=== PATIENT | male | born 1975 | race Caucasian/White ===

== ENCOUNTER 2024-01-03 06:20 | Day surgery (SDC) | payer OTHER, SELFPAY ==
[2024-01-03 09:05] VITALS: BMI 28.3
[2024-01-03 09:07] VITALS: BMI 28.3
[2024-01-03 09:20] VITALS: BP 122/91
[2024-01-03 11:41] VITALS: BP 112/82
[2024-01-03 11:45] VITALS: BP 115/86
[2024-01-03 12:00] VITALS: BP 122/84
[2024-01-03 12:10] VITALS: BP 123/93
== END 2024-01-03 12:20 | disposition home or self-care (01) ==
LOC: GI 06:20
PROVIDERS: ATTENDING PHYSICIAN Internal Medicine
DX: Z12.11 Encounter for screening for malignant neoplasm of colon (principal); K63.89 Other specified diseases of intestine
CPT/HCPCS: 45380; 88305

== ENCOUNTER 2024-01-13 18:09 | Emergency (ER) | payer OTHER, SELFPAY ==
[2024-01-13 18:12] VITALS: BP 120/88
[2024-01-13 18:48] LABS: % Basophils 0.4 % (0-2); % Immature Granulocytes 0.3 % (0-0.5); % Lymphocytes 4.1 % (20.5-51.1); % Monocytes 9.8 % (1.7-9.3); % Neutrophils 85.4 % (42.2-75.2); Absolute Lymphocytes 0.3 10^3/uL (1.2-3.4); Absolute Monocytes 0.7 10^3/uL (0.1-0.6); Hematocrit 37.1 % (39.0-52.0); Hemoglobin 13.4 g/dL (13.0-18.0); Mean Corp Hgb Conc. 36.1 g/dL (33.0-37.0); Mean Corpuscular Hgb 32.8 pg (27.0-31.0); Mean Corpuscular Volume 90.9 fL (80.0-94.0); Mean Platelet Volume 9.8 fL (7.4-10.4); Nucleated Red Blood Cells % 0 % (-); Platelet Count 175 10^3/uL (130-400); Red Blood Cell Count 4.08 10^6/uL (4.70-6.10); Red Cell Dist. Width 12.6 % (11.5-14.5)
[2024-01-13 19:02] LABS: ALT (SGPT) 40 U/L (0-50); AST (SGOT) 43 U/L (17-59); Albumin 4.2 g/dl (3.5-5.0); Alkaline Phosphatase 56 U/L (38-126); Blood Urea Nitrogen 20 mg/dl (9-20); Calcium 9.1 mg/dl (8.4-10.2); Carbon Dioxide 27 mmol/L (22-30); Chloride 100 mmol/L (98-107); Glucose 120 mg/dl (70-99); Potassium 4.3 mmol/L (3.5-5.1); Sodium 135 mmol/L (135-145); Total Bilirubin 1.1 mg/dl (0.2-1.3); Total Protein 6.8 g/dl (6.3-8.2); eGFR > 60.00
[2024-01-13 19:10] LABS: Lactic Acid 1.5 mmol/L (0.7-2.0)
[2024-01-13 21:55] VITALS: BP 127/88
--- NOTE | 2024-01-13 21:57 | ED.GENMED ---
History of Present Illness
General
Chief Complaint: Fatigue
Source: patient
Exam Limitations: none
Time Seen by Provider: 01/13/24 21:26
Nursing documentation reviewed up to this point in time: agreed with
Travel History
Have you had any contact with someone who has COVID-19?: No
Do you have any symptoms of coronavirus? Fever > 100 degrees, chills, cough, shortness of breath, sore throat, loss of taste or smell, muscle aches, or headache?: No
History of Present Illness
History of Present Illness:
Patient is a 48 old male with history of cardiomyopathy CHF heart transplant 2014 presents to the ER for evaluation. Patient for over a week has had chills fatigue nasal congestion no appetite and cough. He was seen by family doctor today given
symptomatic for possible signs infection. He denies any actual shortness of breath. He is on tacrolimus and mycophenolate.
Past History
Past History
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
ED Past Surgical History: Cardiac (Internal defibrillator implant Cardiac transplant May 2015)
Social History
Tobacco: Non-smoker
Alcohol: None
Personal:
Living: with family
Employment: Employed
Family History
Family History: Other (mom with myotonic dystrophy. father healthy)
Review of Systems
Review of Systems
Allergies reviewed?: Yes
All Other Systems: ROS reviewed and negative except as documented in HPI and ROS
Constitutional: Reports fatigue and chills
EENT: Reports other (Nasal congestion)
Respiratory: Reports cough; Denies trouble breathing
Cardiac: Reports no symptoms
ABD/GI: Reports other (Decreased appetite)
: Reports no symptoms
Musculoskeletal: Reports no symptoms
Skin: Reports no symptoms
Neurological: Reports no symptoms
Hematologic/Lymphatic: Reports no symptoms
Psychiatric: Reports no symptoms
Phy Exam
General Physical Exam
General Presentation: no apparent distress
General age: appears stated age
General Skin: warm and dry
General Habitus: normal
General Mental: alert
General Hydration: appears well hydrated
Cardiovascular Exam
Cardiovascular Exam: regular rate/rhythm, no murmur and normal peripheral pulses
Pulmonary Exam
Pulmonary Exam: lungs clear and no respiratory distress
Neurological Exam
Neurological Exam: alert and oriented x3
Musculoskeletal Exam
Musculoskeletal Exam: full ROM
Skin Exam
Skin Exam: normal color and warm/dry
Psychiatric Exam
Psychiatric Exam: normal mood/affect
Course
Orders/Labs/Results
Orders:
Orders
01/13/24 18:19
Electrocardiogram (*1) Urgent
Reason for Study: Other
Other Reason for Exam: uri with cough hx heart transplant
CXR2 [CR Chest - 2 Views ] Urgent
Comment:
Reason For Exam: cough
01/13/24 18:20
EKG- Treatment ONCE
01/13/24 18:36
Complete Blood Count/With Diff Urgent
Comprehensive Metabolic Panel Urgent
Lactic Acid Urgent
Blood Culture Urgent
VANDANA Source: Blood/Venous
Specimen Description:
Influenza A+B Rapid Molecular Urgent
VANDANA Source: Nasal Swab
Specimen Description:
Abnormal Lab Results
01/13/24
18:36
RBC 4.08 L 10^6/uL
(4.70-6.10)
Hct 37.1 L %
(39.0-52.0)
MCH 32.8 H pg
(27.0-31.0)
Absolute Lymphs (auto) 0.3 L 10^3/uL
(1.2-3.4)
Absolute Monos (auto) 0.7 H 10^3/uL
(0.1-0.6)
Neutrophils % 85.4 H %
(42.2-75.2)
Lymphocytes % 4.1 L %
(20.5-51.1)
Monocytes % 9.8 H %
(1.7-9.3)
Glucose 120 H mg/dl
(70-99)
01/13/24 18:36
01/13/24 18:36
Vital Signs
Initial and Last Documented VS:
Initial Vital Signs
Temp Pulse Resp BP Pulse Ox
100.5 F H 104 16 120/88 97
01/13/24 18:12 01/13/24 18:12 01/13/24 18:12 01/13/24 18:12 01/13/24 18:12
Last Documented Vital Signs
Temp Pulse Resp BP Pulse Ox
100.5 F H 92 16 127/88 93
01/13/24 18:12 01/13/24 21:55 01/13/24 18:12 01/13/24 21:55 01/13/24 21:53
Technician Automated Equipment consulted with Physician
Technician Automated Equipment consulted with physician?: Yes
Name of Physician Consulted: luca
MDM/Problems Addressed
Differential Diagnosis Includes:
Not limited to viral syndrome, flu, COVID
MDM/Problems Addressed:
Patient is a 48 male status post cardiac transplant 2014 on tacrolimus and mycophenolate found to be positive for influenza A. Symptoms have been for at least a week. Patient is nontoxic lungs are clear not hypoxic no complaints of shortness of
breath no acute findings on x-ray. Patient is well-appearing he is out of the window for Tamiflu. Case discussed with ED physician will DC with close outpatient follow-up family doctor. Advised patient follow-up with his family doctor in the
next several days return if any worsening of symptoms
*Radiology
Radiology exam reviewed: radiology read reviewed
*Pulse Oximetry
Patient hypoxic: no
*Critical Care Note
Total Time (30-74mins, 75-104mins- exclusive of procedures): Not Applicable
ED Attending Note
-
Portions of this chart may have been created with voice recognition software.� Occasional wrong word or��sound alike� substitutions may have occurred due to the inherent limitations of voice recognition software.
Discharge Plan
Departure
Patient Disposition: Home (Routine Discharge)
Date of Disposition: 01/13/24
Time of Disposition: 22:16
Patient with high blood pressure during this ER visit?: Yes
Discharge Problem:
Influenza A
Instructions: Flu, Adult (DC)
Prescriptions:
No Action
multivitamin [Daily Multiple] 1 EACH tablet
1 ea PO DAILY
Magnesium Oxide
500 mg PO BID
mycophenolate mofetil 500 MG tablet
500 mg PO BID
pravastatin 10 MG tablet
20 mg PO HS
aspirin 81 MG tablet,chewable
81 mg PO DAILY
montelukast 10 MG tablet
20 mg PO QPM
methylphenidate HCl [Concerta] 36 MG tablet extended release 24hr
36 mg PO DAILY
amlodipine 5 MG tablet
5 mg PO DAILY Qty: 30 0RF
tacrolimus [Prograf] 1 mg Capsule
2 mg PO Q12H
Bowel Prep
1 unit PO .PERPROTOCOL
Referrals:
Jorge England MD [Family Provider] -
Activity Restrictions/Additional Instructions:
Be sure to stay well-hydrated. You may take Tylenol every 4-6 hours as needed. Follow-up with your family doctor in the next several days. Also please review with your transplant physician as discussed. Return if any worsening of symptoms
Interventions
Interventions:
*ED COVID-19 Vaccine History Last Done: 01/13/24 18:12
[2024-01-13] MEDS: TYLENOL 650 MG PO (22:30)
[2024-01-13 22:46] VITALS: BP 125/80
== END 2024-01-13 22:47 | disposition home or self-care (01) ==
LOC: EMR 18:09
PROVIDERS: Emergency Medicine; EMERGENCY PHYSICIAN Emergency Medicine; FAMILY PHYSICIAN Internal Medicine
DX: J10.1 Influenza due to other identified influenza virus with other respiratory manifestations (principal); R03.0 Elevated blood-pressure reading, without diagnosis of hypertension; I42.9 Cardiomyopathy, unspecified; I50.9 Heart failure, unspecified; F90.9 Attention-deficit hyperactivity disorder, unspecified type; Z94.1 Heart transplant status; Z95.810 Presence of automatic (implantable) cardiac defibrillator; Z79.621 Long term (current) use of calcineurin inhibitor; Z79.624 Long term (current) use of inhibitors of nucleotide synthesis; Z79.82 Long term (current) use of aspirin; Z91.048 Other nonmedicinal substance allergy status
CPT/HCPCS: 99283; 71046; 80053; 83605; 85025; 87040; 87502; 93005

== ENCOUNTER 2024-07-17 21:30 | Emergency (ER) | payer OTHER, SELFPAY ==
[2024-07-17 21:32] VITALS: BP 136/81
--- NOTE | 2024-07-17 22:45 | ED.GENMED ---
History of Present Illness
<PAPO Goncalves - Last Filed: 07/17/24 22:59>
General
Chief Complaint: Skin Problem
Source: patient
Exam Limitations: none
Time Seen by Provider: 07/17/24 22:44
Nursing documentation reviewed up to this point in time: agreed with
History of Present Illness
History of Present Illness:
Pt is a 48 y/o male with pmhx of heart transplant x9 years who presents with complaints of a pustule on the bridge of his nose x 1week. The patient stated that the mass appeared suddenly and noticed it when he woke up one morning. The pustule is
about 1 cm in diameter and is fluctuant. There is associated redness that is worsening. The pt sought care with his PCP who placed him on 10 days of Cephalexin which he started on Saturday. The pustule has not increased in size since onset. The pt
denies pruritus, pain, fever, chills, SOB, vision changes.
Past History
<PAPO Goncalves - Last Filed: 07/17/24 22:59>
Past History
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
ED Past Surgical History: Cardiac (Internal defibrillator implant Cardiac transplant May 2015)
Social History
Tobacco: Non-smoker
Alcohol: None
Drug: None
Personal:
Living: with family
Employment: Employed
Family History
Family History: Other (mom with myotonic dystrophy. father healthy)
Review of Systems
<PAPO Goncalves - Last Filed: 07/17/24 22:59>
Review of Systems
Allergies reviewed?: Yes
Constitutional: Reports no symptoms
EENT: Reports no symptoms
Respiratory: Reports no symptoms
Cardiac: Reports no symptoms
ABD/GI: Reports no symptoms
: Reports no symptoms
Musculoskeletal: Reports no symptoms
Skin: Reports other (1 cm pustule on bridge of nose)
Neurological: Reports no symptoms
Endocrine: Reports no symptoms
Hematologic/Lymphatic: Reports no symptoms
Psychiatric: Reports no symptoms
Phy Exam
<PAPO Goncalves - Last Filed: 07/17/24 22:59>
General Physical Exam
General Presentation: well appearing and no apparent distress
General age: appears stated age
General Skin: warm and dry
General Habitus: normal
General Mental: alert
General Hydration: appears well hydrated
ENT Exam
ENT Exam: neck supple
Eye Exam
Eye Exam: PERRL
Cardiovascular Exam
Cardiovascular Exam: regular rate/rhythm and normal peripheral pulses
Pulmonary Exam
Pulmonary Exam: no respiratory distress
Neurological Exam
Neurological Exam: alert and oriented x3
Musculoskeletal Exam
Musculoskeletal Exam: full ROM
Skin Exam
Skin Exam: redness and other (1 cm pustule on bridge of nose)
Psychiatric Exam
Psychiatric Exam: normal mood/affect
Course
<PAPO Goncalves - Last Filed: 07/17/24 22:59>
Vital Signs
Initial and Last Documented VS:
Initial Vital Signs
Temp Pulse Resp BP Pulse Ox
98.3 F 86 20 136/81 98
07/17/24 21:32 07/17/24 21:32 07/17/24 21:32 07/17/24 21:32 07/17/24 21:32
Last Documented Vital Signs
Temp Pulse Resp BP Pulse Ox
98.3 F 86 20 136/81 98
07/17/24 21:32 07/17/24 21:32 07/17/24 21:32 07/17/24 21:32 07/17/24 21:32
<Pasquale Carmichael DO - Last Filed: 07/17/24 23:38>
Vital Signs
Initial and Last Documented VS:
Initial Vital Signs
Temp Pulse Resp BP Pulse Ox
98.3 F 86 20 136/81 98
07/17/24 21:32 07/17/24 21:32 07/17/24 21:32 07/17/24 21:32 07/17/24 21:32
Last Documented Vital Signs
Temp Pulse Resp BP Pulse Ox
98.3 F 86 20 136/81 98
07/17/24 21:32 07/17/24 21:32 07/17/24 21:32 07/17/24 21:32 07/17/24 21:32
Procedures
<Pasquale Carmichael DO - Last Filed: 07/17/24 23:38>
Incision/Drainage/Joint Aspiration
Left nose:
Anethesia: 1% Lidocaine with Epi
Preparation: cleaned with Betadine
Type of procedure: drain
Nature of site: abscess
Description of abscess: less than 3cm
How much fluid was obtained?: small amount
Fluid description: purulent
Treatment: left open for drainage
Additional information:
Verbal consent, timeout 2 cc 1% lidocaine with epi #11 blade
Pus and white material removed
? Cyst infected
<PAPO Goncalves - Last Filed: 07/17/24 22:59>
MDM/Problems Addressed
Differential Diagnosis Includes:
Folliculitis
Acne
<PAPO Goncalves - Last Filed: 07/17/24 22:59>
*Critical Care Note
Total Time (30-74mins, 75-104mins- exclusive of procedures): Not Applicable
ED Attending Note
<PAPO Goncalves - Last Filed: 07/17/24 22:59>
-
Portions of this chart may have been created with voice recognition software.� Occasional wrong word or��sound alike� substitutions may have occurred due to the inherent limitations of voice recognition software.
<Pasquale Carmichael, DO - Last Filed: 07/17/24 23:38>
ED Attending Note
Patient seen and examined by attending physician: Yes
I performed the substantive portion of visit, reviewed & personally made and approve the management plan that is documented in note by myself or OBDULIO.: Yes
ED Attending Note:
Seen with student examined independently 48-year-old male heart transplant not on blood thinners painful and bridge of the nose swelling's been on Keflex has some fluctuance he request drainage drained with sterile technique, perhaps a cyst,
continue antibiotics hopefully this should heal up with drainage
Discharge Plan
Departure
Patient Disposition: Home (Routine Discharge)
Date of Disposition: 07/17/24
Time of Disposition: 23:35
Patient with high blood pressure during this ER visit?: No
Condition: Good
Covid-19: Not Applicable
Discharge Problem:
Encounter for drainage of abscess
Instructions: Cellulitis (Skin Infection), Adult (DC), Skin Abscess
Prescriptions:
No Action
multivitamin [Daily Multiple] 1 EACH tablet
1 ea PO DAILY
Magnesium Oxide
500 mg PO BID
mycophenolate mofetil 500 MG tablet
500 mg PO BID
pravastatin 10 MG tablet
20 mg PO HS
aspirin 81 MG tablet,chewable
81 mg PO DAILY
montelukast 10 MG tablet
20 mg PO QPM
methylphenidate HCl [Concerta] 36 MG tablet extended release 24hr
36 mg PO DAILY
amlodipine 5 MG tablet
5 mg PO DAILY Qty: 30 0RF
tacrolimus [Prograf] 1 mg Capsule
2 mg PO Q12H
Bowel Prep
1 unit PO .PERPROTOCOL
Referrals:
Jorge England MD [Family Provider] - Next open appointment
Activity Restrictions/Additional Instructions:
Keep wound covered, continue antibiotics return to the ER for worsening symptoms
Interventions
Interventions:
*Risk Screen - Suicide Last Done: 07/17/24 22:44
*General Assessment Last Done: 07/17/24 22:44
*Neglect/Abuse Screening Last Done: 07/17/24 22:44
*ED COVID-19 Vaccine History Last Done: 07/17/24 22:44
ED-Skin Assessment Last Done: 07/17/24 22:44
Discharge Date and Time
Print Language: AMHARIC
--- NOTE | 2024-07-17 22:45 | EDRN ---
Pt says he has had a bump on his nose x 1 week. Pt went to his doctor on Saturday and was started on keflex 500mg QID. Pt says bump is now red, was not earlier this week. No drainage, fever/chills.
[2024-07-17 23:45] VITALS: BP 129/88
== END 2024-07-17 23:50 | disposition home or self-care (01) ==
LOC: EMR 21:30
PROVIDERS: EMERGENCY PHYSICIAN Emergency Medicine; FAMILY PHYSICIAN Internal Medicine
DX: J34.0 Abscess, furuncle and carbuncle of nose (principal); F90.9 Attention-deficit hyperactivity disorder, unspecified type; Z94.1 Heart transplant status; Z91.048 Other nonmedicinal substance allergy status; Z79.82 Long term (current) use of aspirin; Z79.69 Long term (current) use of other immunomodulators and immunosuppressants
CPT/HCPCS: 10060; 99282

== ENCOUNTER 2024-08-14 13:44 | Emergency (ER) | payer OTHER, SELFPAY ==
--- NOTE | 2024-08-14 14:03 | ED.GENMED ---
ED Provider Triage
<Noel Vargas PA-C - Last Filed: 08/14/24 14:04>
-
Patient seen by provider in Triage?: Seen in Triage
Attestation: A medical screening examination has been initiated by a qualified medical provider. Based on the assessment performed at this time, it has been determined that an emergent medical condition may exist and the patient has been informed
that further medical evaluation and possible additional diagnostic testing may be needed.
HPI: 48-year-old male presenting the emergency department at request of primary care provider for evaluation of a cough that has been ongoing for a few days. Patient is a cardiac transplant patient sent by primary care provider. Finished a Z-Fabrice
that was prescribed by primary care provider. Patient is otherwise currently stable.
GENERAL: Alert , in no apparent distress
EYE: No visual abnormalities.
NECK: Trachea midline
ENT: No visible abnormalities.
LUNGS: No acute respiratory distress
NEUROLOGICAL: Alert and oriented
SKIN: Skin intact. No visible changes.
MUSCULOSKELETAL: Moving extremities normally
PSYCH: Normal and appropriate interaction.
This is a medical evaluation conducted in person to initiate diagnostic evaluation and provide initial therapeutics. Please see further documentation by the treating clinician.
History of Present Illness
<Noel Vargas PA-C - Last Filed: 08/14/24 14:04>
General
Chief Complaint: Cough
Time Seen by Provider: 08/14/24 17:51
<Joey Kraft MD - Last Filed: 08/14/24 18:07>
General
Source: patient
Exam Limitations: none
History of Present Illness
History of Present Illness:
Patient with a cough for a week. Relatively dry. At times some clear to white sputum. No chest pain no shortness of breath no pleuritic pain. Started azithromycin 2 days ago. No fever. No chills.
Past History
<Noel Vargas PA-C - Last Filed: 08/14/24 14:04>
Past History
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
ED Past Surgical History: Cardiac (Internal defibrillator implant Cardiac transplant May 2015)
Social History
Tobacco: Non-smoker
Alcohol: None
Drug: None
Personal:
Living: with family
Employment: Employed
Family History
Family History: Other (mom with myotonic dystrophy. father healthy)
Review of Systems
<Joey Kraft MD - Last Filed: 08/14/24 18:07>
Review of Systems
All Other Systems: Not applicable
Phy Exam
<Joey Kraft MD - Last Filed: 08/14/24 18:07>
Physical Exam
Physical Exam:
GENERAL: Alert and oriented in no apparent distress
EYE: Orbits normal.
NECK: Supple
CARDIAC: Regular rate and rhythm.
LUNGS: Clear breath sounds,normal. Patient did have 1 episode of a coarse cough
ABDOMEN: Soft, without focal tenderness or distention
NEUROLOGICAL: Alert and oriented , grossly non-focal
SKIN: Warm and dry, no rash or lesion, no discoloration, skin intact.
MUSCULOSKELETAL: No edema,no deformity.Good color
PSYCH: Normal and appropriate interaction.
Course
<Noel Vargas PA-C - Last Filed: 08/14/24 14:04>
Orders/Labs/Results
Orders:
Orders
08/14/24 13:54
Chest [CR Chest - 2 Views ] Urgent
Comment:
Reason For Exam: cough
Vital Signs
Initial and Last Documented VS:
Initial Vital Signs
Temp Pulse Resp Pulse Ox
98.5 F 79 18 98
08/14/24 13:54 08/14/24 13:54 10/11/24 13:54 08/14/24 13:54
Last Documented Vital Signs
Temp Pulse Resp Pulse Ox
98.5 F 79 18 98
08/14/24 13:54 08/14/24 13:54 08/14/24 13:54 08/14/24 13:54
<Joey Kraft MD - Last Filed: 08/14/24 18:07>
Orders/Labs/Results
Orders:
Orders
08/14/24 13:54
Chest [CR Chest - 2 Views ] Urgent
Comment:
Reason For Exam: cough
Vital Signs
Initial and Last Documented VS:
Initial Vital Signs
Temp Pulse Resp Pulse Ox
98.5 F 79 18 98
08/14/24 13:54 08/14/24 13:54 08/14/24 13:54 08/14/24 13:54
Last Documented Vital Signs
Temp Pulse Resp Pulse Ox
98.5 F 79 18 98
08/14/24 13:54 08/14/24 13:54 08/14/24 13:54 08/14/24 13:54
<Joey Kraft MD - Last Filed: 08/14/24 18:07>
MDM/Problems Addressed
Differential Diagnosis Includes:
Patient with a coarse cough for a week. However no shortness of breath no chest pain no fever no myalgias. No pleuritic pain. Very nontoxic. No peripheral edema lungs are relatively clear. Had a rare slight rhonchi when he did cough the 1
episode. Nothing to support heart failure. 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 Also discussed COVID and flu testing. Really not describing flulike symptoms. Also did a negative COVID
test this morning. Patient is comfortable with ongoing outpatient continued therapy.
<Joey Kraft MD - Last Filed: 08/14/24 18:07>
*Radiology
Radiology exam reviewed: radiology read reviewed (Negative)
*Pulse Oximetry
Patient hypoxic: no
*Critical Care Note
Total Time (30-74mins, 75-104mins- exclusive of procedures): Not Applicable
Data Reviewed
Review of Other/Old Records Reveals: Labs, Records and Testing
ED Attending Note
<Noel Vargas PA-C - Last Filed: 08/14/24 14:04>
-
Portions of this chart may have been created with voice recognition software.� Occasional wrong word or��sound alike� substitutions may have occurred due to the inherent limitations of voice recognition software.
Discharge Plan
Departure
Patient Disposition: Home (Routine Discharge)
Date of Disposition: 08/14/24
Time of Disposition: 18:06
Patient with high blood pressure during this ER visit?: Yes
Discharge Problem:
Cough/bronchitis
Instructions: Acute Bronchitis, Adult (DC), BLOOD PRESSURE
Prescriptions:
No Action
multivitamin [Daily Multiple] 1 EACH tablet
1 ea PO DAILY
Magnesium Oxide
500 mg PO BID
mycophenolate mofetil 500 MG tablet
500 mg PO BID
pravastatin 10 MG tablet
20 mg PO HS
aspirin 81 MG tablet,chewable
81 mg PO DAILY
montelukast 10 MG tablet
20 mg PO QPM
methylphenidate HCl [Concerta] 36 MG tablet extended release 24hr
36 mg PO DAILY
amlodipine 5 MG tablet
5 mg PO DAILY Qty: 30 0RF
tacrolimus [Prograf] 1 mg Capsule
2 mg PO Q12H
Bowel Prep
1 unit PO .PERPROTOCOL
Activity Restrictions/Additional Instructions:
Follow-up closely with your physicians
Get rechecked with increasing cough shortness of breath chest pain high fever or if symptoms or not improving in the next few days
Interventions
Interventions:
*Risk Screen - Suicide Last Done: 08/14/24 13:54
*General Assessment Last Done: 08/14/24 13:54
*Neglect/Abuse Screening Last Done: 08/14/24 13:54
*ED COVID-19 Vaccine History Last Done: 08/14/24 13:54
Discharge Date and Time
Print Language: SCOTTISH
[2024-08-14 18:12] VITALS: BP 128/99
[2024-08-14 19:26] LABS: COVID-19 Antigen Negative (Negative)
[2024-08-14 19:33] VITALS: BP 142/91
== END 2024-08-14 19:34 | disposition home or self-care (01) ==
LOC: EMR 13:44
PROVIDERS: EMERGENCY PHYSICIAN Emergency Medicine; FAMILY PHYSICIAN Internal Medicine
DX: R05.9 Cough, unspecified (principal); J40 Bronchitis, not specified as acute or chronic; Z94.1 Heart transplant status; I50.9 Heart failure, unspecified; F90.9 Attention-deficit hyperactivity disorder, unspecified type
CPT/HCPCS: 99283; 71046; 87502; 87811

== ENCOUNTER → 2024-09-09 17:02 | Outpatient (REF) | payer OTHER, SELFPAY | LOC: HWRAD 17:02 | PROVIDERS: ATTENDING PHYSICIAN Internal Medicine | DX: R05.9 Cough, unspecified (principal) | CPT/HCPCS: 71046 ==

== ENCOUNTER 2024-11-29 12:27 | Emergency (ER) | payer OTHER, SELFPAY ==
[2024-11-29 12:36] VITALS: BP 127/86
[2024-11-29 12:59] LABS: % Basophils 0.3 % (0-2); % Eosinophils 0.8 % (0-6); % Immature Granulocytes 0.2 % (0-0.5); % Lymphocytes 4.6 % (20.5-51.1); % Monocytes 5.4 % (1.7-9.3); % Neutrophils 88.7 % (42.2-75.2); Absolute Eosinophils 0.1 10^3/uL (0-0.7); Absolute Lymphocytes 0.6 10^3/uL (1.2-3.4); Absolute Monocytes 0.7 10^3/uL (0.1-0.6); Absolute Neutrophils 10.8 10^3/uL (1.4-6.5); Hematocrit 40.3 % (39.0-52.0); Hemoglobin 14.5 g/dL (13.0-18.0); Mean Corpuscular Volume 91.6 fL (80.0-94.0); Mean Platelet Volume 9.6 fL (7.4-10.4); Nucleated Red Blood Cells % 0 % (-); Platelet Count 191 10^3/uL (130-400); Red Cell Dist. Width 12.4 % (11.5-14.5); White Blood Cell Count 12.2 10^3/uL (4.8-10.8)
[2024-11-29 13:12] LABS: ALT (SGPT) 40 U/L (0-50); AST (SGOT) 43 U/L (17-59); Albumin 4.4 g/dl (3.5-5.0); Alkaline Phosphatase 62 U/L (38-126); Blood Urea Nitrogen 23 mg/dl (9-20); Calcium 9.4 mg/dl (8.4-10.2); Carbon Dioxide 24 mmol/L (22-30); Chloride 101 mmol/L (98-107); Glucose 126 mg/dl (70-99); Potassium 4.4 mmol/L (3.5-5.1); Sodium 136 mmol/L (135-145); Total Bilirubin 1.3 mg/dl (0.2-1.3); Total Protein 6.9 g/dl (6.3-8.2); eGFR > 60.00
[2024-11-29 13:21] LABS: COVID-19 Antigen Negative (Negative)
--- NOTE | 2024-11-29 14:32 | ED.GENMED ---
History of Present Illness
<Taylor Gomez PA-C - Last Filed: 11/29/24 20:17>
General
Chief Complaint: Cold/Flu/URI Symptoms
Source: patient
Exam Limitations: none
Time Seen by Provider: 11/29/24 14:28
Nursing documentation reviewed up to this point in time: agreed with
History of Present Illness
History of Present Illness:
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
this morning. He also notes that he will have an occasional dry cough. He denies coughing up sputum, he denies chest pain. Denies sore throat or trouble swallowing. He denies any pain in his ears or congested feeling in his ears. He notified
his transplant team at [place] and they advised him to report to emergency department for further evaluation and they are concerned he may have the flu. Patient denies generalized body aches. He denies trouble swallowing, abdominal pain, nausea,
vomiting, diarrhea. He denies any fevers or chills.
Past History
<Taylor Gomez PA-C - Last Filed: 11/29/24 20:17>
Past History
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
ED Past Surgical History: Cardiac (Internal defibrillator implant Cardiac transplant May 2015)
Social History
Tobacco: Non-smoker
Alcohol: None
Drug: None
Personal:
Living: with family
Employment: Employed
Family History
Family History: Other (mom with myotonic dystrophy. father healthy)
Review of Systems
<Taylor Gomez PA-C - Last Filed: 11/29/24 20:17>
Review of Systems
All Other Systems: ROS reviewed and negative except as documented in HPI and ROS
Phy Exam
<Taylor Gomez PA-C - Last Filed: 11/29/24 20:17>
Physical Exam
Physical Exam:
General: Patient is well appearing and in no acute distress; non-toxic
Skin: Warm and dry, no rashes or lesions
Head: Normocephalic, atraumatic
Eyes: Sclera non-icteric. EOMs intact. PERRLA.
Cardiac: Regular rate and rhythm, no murmur, no tenderness palpation of the external chest wall
Peripheral Vascular: No lower extremity swelling or edema
Pulm: Normal respiratory effort, no wheezes, rales, rhonchi
Abdomen: No abdominal tenderness to palpation
Neuro: CN II-XII intact, no focal neurologic deficits.
Psychiatric: Appropriate mood and affect.
Course
<Taylor Gomez PA-C - Last Filed: 11/29/24 20:17>
Orders/Labs/Results
Orders:
Orders
11/29/24 12:47
COVID-19 Antigen Urgent
Source: Nasal Swab
Complete Blood Count/With Diff Urgent
Comprehensive Metabolic Panel Urgent
Influenza A+B Rapid Molecular Urgent
VANDANA Source: Nasal Swab
Specimen Description:
11/29/24 13:47
CR Chest - 2 Views Urgent
Comment:
Reason For Exam: cough/congestion
11/29/24 15:09
Electrocardiogram (*1) Urgent
Reason for Study: Fatigue / Weakness
EKG- Treatment ONCE
Abnormal Lab Results
11/29/24
12:47
WBC 12.2 H 10^3/uL
(4.8-10.8)
RBC 4.40 L 10^6/uL
(4.70-6.10)
MCH 33.0 H pg
(27.0-31.0)
Absolute Neuts (auto) 10.8 H 10^3/uL
(1.4-6.5)
Absolute Lymphs (auto) 0.6 L 10^3/uL
(1.2-3.4)
Absolute Monos (auto) 0.7 H 10^3/uL
(0.1-0.6)
Neutrophils % 88.7 H %
(42.2-75.2)
Lymphocytes % 4.6 L %
(20.5-51.1)
BUN 23 H mg/dl
(9-20)
Glucose 126 H mg/dl
(70-99)
11/29/24 12:47
11/29/24 12:47
Vital Signs
Initial and Last Documented VS:
Initial Vital Signs
Temp Pulse Resp BP Pulse Ox
99.9 F 100 22 127/86 100
11/29/24 12:36 11/29/24 12:36 11/29/24 12:36 11/29/24 12:36 11/29/24 12:36
Last Documented Vital Signs
Temp Pulse Resp BP Pulse Ox
99.9 F 95 19 130/87 95
11/29/24 12:36 11/29/24 16:12 11/29/24 16:12 11/29/24 16:12 11/29/24 16:12
<Anup Blanco, DO - Last Filed: 11/29/24 22:44>
Orders/Labs/Results
Orders:
Orders
11/29/24 12:47
COVID-19 Antigen Urgent
Source: Nasal Swab
Complete Blood Count/With Diff Urgent
Comprehensive Metabolic Panel Urgent
Influenza A+B Rapid Molecular Urgent
VANDANA Source: Nasal Swab
Specimen Description:
11/29/24 13:47
CR Chest - 2 Views Urgent
Comment:
Reason For Exam: cough/congestion
11/29/24 15:09
Electrocardiogram (*1) Urgent
Reason for Study: Fatigue / Weakness
EKG- Treatment ONCE
Abnormal Lab Results
11/29/24
12:47
WBC 12.2 H 10^3/uL
(4.8-10.8)
RBC 4.40 L 10^6/uL
(4.70-6.10)
MCH 33.0 H pg
(27.0-31.0)
Absolute Neuts (auto) 10.8 H 10^3/uL
(1.4-6.5)
Absolute Lymphs (auto) 0.6 L 10^3/uL
(1.2-3.4)
Absolute Monos (auto) 0.7 H 10^3/uL
(0.1-0.6)
Neutrophils % 88.7 H %
(42.2-75.2)
Lymphocytes % 4.6 L %
(20.5-51.1)
BUN 23 H mg/dl
(9-20)
Glucose 126 H mg/dl
(70-99)
11/29/24 12:47
11/29/24 12:47
Vital Signs
Initial and Last Documented VS:
Initial Vital Signs
Temp Pulse Resp BP Pulse Ox
99.9 F 100 22 127/86 100
11/29/24 12:36 11/29/24 12:36 11/29/24 12:36 11/29/24 12:36 11/29/24 12:36
Last Documented Vital Signs
Temp Pulse Resp BP Pulse Ox
99.9 F 95 19 130/87 95
11/29/24 12:36 11/29/24 16:12 11/29/24 16:12 11/29/24 16:12 11/29/24 16:12
<Taylor Gomez PA-C - Last Filed: 11/29/24 20:17>
MDM/Problems Addressed
Differential Diagnosis Includes:
Differential includes upper respiratory infection, sinusitis, pneumonia
MDM/Problems Addressed:
This is a 49-year-old male with a past medical history of viral cardiomyopathy status post transplant presents emergency department today with generalized viral symptoms. He has had generalized congestion in his head as well as dry cough and
fatigue. He tested negative for COVID and flu today. On exam he is very well-appearing afebrile not hypoxic in no acute distress. His transplant team was concerned about him possible having flu. Patient is not in anyone in contact who tested
positive for flu. Mild leukocytosis on lab work noted, suspect from current viral syndrome, chest x-ray negative for any pneumonia. No evidence of acute heart failure. I reviewed case with from patient's transplant team at [facility] who
is okay with patient being discharged and does not feel the patient needs to be put on Tamiflu selectively at this time. Advised the patient to probably be tested for flu again in the next coming days and can continue to monitor symptoms. Return
precautions discussed. Patient stable for discharge.
Chronic conditions affecting care:
chf, viral cardiomyopathy
<Taylor Gomez PA-C - Last Filed: 11/29/24 20:17>
*Pulse Oximetry
Patient hypoxic: no
*Critical Care Note
Total Time (30-74mins, 75-104mins- exclusive of procedures): Not Applicable
Data Reviewed
Review of Other/Old Records Reveals: Records (Reviewed ER physician documentation from 08/14/2024 patient seen for cough and was discharge) and Discharge Summary (Viewed discharge summary from 09/15/2012 when patient was seen for cough he was found
to be in CHF and was transferred)
<Taylor Gomez PA-C - Last Filed: 11/29/24 20:17>
Patient Management
Escalation/DeEscalation of care consider admission/obs:
admit not indicated patient stable for discharge
ED Attending Note
<Taylor Gomez PA-C - Last Filed: 11/29/24 20:17>
-
Portions of this chart may have been created with voice recognition software.� Occasional wrong word or��sound alike� substitutions may have occurred due to the inherent limitations of voice recognition software.
<Anup Blanco DO - Last Filed: 11/29/24 22:44>
ED Attending Note
Patient seen and examined by attending physician: Yes
I performed the substantive portion of visit, reviewed & personally made and approve the management plan that is documented in note by myself or OBDULIO.: Yes
ED Attending Note:
Patient is well-appearing. Chest x-ray negative. Does admit to just upper nasal congestion. Case was coordinated by EMILIANO with transplant team for follow-up
Discharge Plan
Departure
Patient Disposition: Home (Routine Discharge)
Date of Disposition: 11/29/24
Time of Disposition: 17:33
Patient with high blood pressure during this ER visit?: Yes
Condition: Good
Discharge Problem:
Acute viral syndrome
Instructions: Viral Upper Respiratory Infection, Adult (DC), BLOOD PRESSURE
Prescriptions:
No Action
multivitamin [Daily Multiple] 1 EACH tablet
1 ea PO DAILY
Magnesium Oxide
500 mg PO BID
mycophenolate mofetil 500 MG tablet
500 mg PO BID
pravastatin 10 MG tablet
20 mg PO HS
aspirin 81 MG tablet,chewable
81 mg PO DAILY
montelukast 10 MG tablet
20 mg PO QPM
methylphenidate HCl [Concerta] 36 MG tablet extended release 24hr
36 mg PO DAILY
amlodipine 5 MG tablet
5 mg PO DAILY Qty: 30 0RF
tacrolimus [Prograf] 1 mg Capsule
2 mg PO Q12H
Bowel Prep
1 unit PO .PERPROTOCOL
Referrals:
Jorge England MD [Family Provider] -
Activity Restrictions/Additional Instructions:
Please follow-up with your primary care provider and your transplant team with help as indicated. I did have a discussion with physician on-call with the transplant team and they are okay with not starting Tamiflu at this time.
PLEASE RETURN TO EMERGENCY DEPARTMENT SHOULD YOU DEVELOP CHEST PAIN, SHORTNESS OF BREATH, INTRACTABLE NAUSEA OR VOMITING, UPPER BACK PAIN, FLANK PAIN, BURNING WITH URINATION, FEVERS OR CHILLS, WEAKNESS IN ONE-SIDED BODY VERSUS OTHER, FAINTING
SPELLS, OR ANY OTHER SIGNS OR SYMPTOMS CONCERNING.
Interventions
Interventions:
*Risk Screen - Suicide Last Done: 11/29/24 12:36
*General Assessment Last Done: 11/29/24 12:36
*Neglect/Abuse Screening Last Done: 11/29/24 12:36
ED- Fall Risk Assessment Last Done: 11/29/24 16:12
*Nursing Disposition Last Done: 11/29/24 18:03
ED- Pulmonary Assessment Last Done: 11/29/24 16:12
Discharge Date and Time
Discharge Date/Time: 11/29/24 18:04
Print Language: YORUBA
[2024-11-29 16:12] VITALS: BP 130/87
== END 2024-11-29 18:04 | disposition home or self-care (01) ==
LOC: EMR 12:27
PROVIDERS: Emergency Medicine; EMERGENCY PHYSICIAN Emergency Medicine; FAMILY PHYSICIAN Internal Medicine
DX: B34.9 Viral infection, unspecified (principal); I50.9 Heart failure, unspecified; Z94.1 Heart transplant status
CPT/HCPCS: 99285; 71046; 80053; 85025; 87502; 87811; 93005